=== PATIENT | female | born 1945 | race Caucasian/White ===

== ENCOUNTER 2017-12-04 03:43 | Inpatient (IN) | payer OTHER, MEDICARE ==
[~2017-12-04] VITALS: Ht 154.9 cm; Wt 94.3 kg
[~2017-12-04 03:43] MED LIST: ASPIRIN EC81 M1 PO; CALCIUM 500 +1 EAC5 PO; COZAAR100 M1 PO; CRESTOR20 M2 PO; MELOXICAM7.5 M1 PO; MYRBETRIQ50 M1 PO; TOPROL XL25 M1 PO; TYLENOL EXTRA500 M2 PO; VITAMIN C500 M7 PO
[2017-12-04] MEDS ORDERED: FLONASE ALLERG9.9 ML (10:29)
--- NOTE | 2017-12-04 11:35 | Operative Report ---
Operative/Inv Procedure Report Surgery Date: 12/04/17 Name of Procedure: Right total knee arthroplasty Pre-Operative Diagnosis: Primary osteoarthritis right knee Post-Operative Diagnosis: Same Estimated Blood Loss: less than 50ml Surgeon/Cylinder Inspector And Tester: Sandrita MUNGUIA,Gordo HOPKINS Anesthesia: block (spinal) IV Fluids: See anesthesia record Implants: [place] triathlon posterior stabilized knee size 4 femur, size 4 tibia, 16 mm polyethylene insert, size 27 patella Drains: None Specimens: Bone to pathology Tourniquet: 49 minutes Complications: None Condition: Stable Operative Indication: Patient's a 72-year-old female who has failed conservative treatment for her right knee osteoarthritis. She was indicated for right total knee arthroplasty. The risks and benefits of the procedure were discussed with the patient detail in the office she wished to proceed. A skeletal hand is necessary provided by physician talent assistant Wero Kim aid with retraction limb positioning and limb retraction component Primo throughout the case. Operative/Procedure Note Note: Once informed consent was obtained and the correct limb was identified the patient brought Room placed on table in supine position. After administration of spinal anesthesia the patient's had a Grimes catheter placed in the right thigh had a tourniquet placed. The right lower extremity is prepped and draped in usual sterile fashion. To begin the procedure a standard midline incision was made for total knee arthroscopy. Sharp dissection was carried down through the skin and subcutis tissue. A medial parapatellar arthrotomy was performed. The patella was everted and the fat pad removed from patellar tendon. The patellar thickness was measured to be 24 mm and a 10 mm resection of bone was taken off the patella. The patella was sized to size 27 patella and the Karan for the 27 patella was placed onto the patella and the drill holes were made. At this point the patella was retracted laterally and the knee was placed in the flexion. The anterior cruciate ligaments were resected. The medial and lateral menisci were resected sharply as well. A step drill was used to enter the intramedullary canal of the femur and a distal femoral cutting guide was placed. Plan resection of 6 of valgus and 10 mm of bony resection was performed without complication. The sizing guide was placed in the distal femur and the femur sized to be a size 4 femur. A size 4 4-in-1 cutting block was placed in the distal femur and the anterior, posterior, chamfer cuts were made without complication. Once this was done the box cut guide for the posterior stabilized knee was placed on the femur and the box cut was made with an oscillating saw. Bone was passed off as specimen. At this point curved osteotomes were used to remove any posterior osteophytes off the femoral condyles as well as curved curettes. Remainder of the menisci menisci were sharply resected. Attention was then turned to the tibia. Step drill was used to enter the intramedullary canal of the tibia. Intramedullary tibial cutting guide was placed and a plan resection of 9 mm off the unaffected side of the knee was set. Tibial cut was made without complication bone was passed off as specimen. The tibial sizing was used and found to be a size 4 tibial tray. Trial reduction was done with a size 4 tibial tray and a size 4 femur. Size 11 Felisa was placed. This was too loose and we actually went up to a size 16 poly-for stability. Patient had full extension and 110 of flexion. Flexion was limited by the size of the patient's thigh. The knee was stable to varus and valgus stress at 0 and 60. The patella tracked nicely and the rotation of the tibial component was marked. The components were removed and the tibial tray was pinned in place for the keel cut. The keel cut was made without complication and all components were removed. The knee was pulse lavaged and the cement was mixed on the back table. The components were then cemented in place with the tibial component cemented first followed by the femoral component and the patellar button. Excess cement was removed with curettes. A 16 mm trial insert was placed and he is placed in full extension while cement hardened. Knee was again taken through a range of motion and found to be stable. A 60 mm polyethylene insert was opened and locked onto the tibial tray without complication. The knee was again pulse lavaged and the tourniquet was released. Any bleeding was stopped with electrical cautery. The arthrotomy was then closed with #1 Vicryl interrupted sutures. The subcutaneous tissues closed with 2-0 Vicryl interrupted sutures and the skin was closed with tray. Sterile dressing was applied and the patient was awakened and taken recovery in stable condition.
[2017-12-04 14:32] VITALS: BP 128/70
[2017-12-04] MEDS ORDERED: METOPROLOL TART25 M1 PO (15:08)
--- NOTE | 2017-12-04 15:14 | PN- Student ---
Karli Blakely 12/04/17 1507: Subjective Subjective: Saw the pt post-op on the floor and she is doing well. She was eating some lunch when I arrived. She is without pain. Hasn't been oob yet or seen by PT. Grimes in place with good output. IV fluids were running. Pt has no complaints at this time. Objective Objective: Gen: O&Ax3, sitting up in bed, in no apparent distress Lung: CTA Heart: s1 and s2 normal. RRR Abdomen: soft/nt/nd LE: sensation intact bilaterally, strength 5/5 bilaterally, gross motor intact, dp 2+ bilaterally, compression bandage in place on right leg- c/d/i- ice pack in place over right knee, ALPS on Results Results: Orders Procedure Date/time Status XRY-KNEE, RIGHT 12/06 1000 Active CBC WITHOUT DIFFERENTIAL 12/05 0600 Active BASIC ELECTROLYTES PLUS BUN&CR 12/05 0600 Active Regular Diet 12/04 L Active Weight 12/04 1420 Active Vital Signs 12/04 1420 Active Teach/Educate 12/04 1420 Active Pain Treatment and Response 12/04 1420 Active Nutritional Intake, Monitor 12/04 1420 Active Isolation 12/04 1420 Active Intake & Output 12/04 1420 Active Patient Care Conference 12/04 1420 Active Activity/Ambulation 12/04 1420 Active PT Evaluate & Treat 12/04 1335 Active Saline Lock 12/04 1335 Active Pathway - chart 12/04 1335 Active Admit to inpatient 12/04 1335 Active Patient Data 12/04 1335 Active Wound Care/Dressing 12/04 1335 Active VTE Mechanical Prophylaxis 12/04 1335 Active Vital Signs 12/04 1335 Active Heat/Cold Therapy 12/04 1335 Active Grimes, Insertion/Removal/Asses 12/04 1335 Active CMS- Neurovascular Checks 12/04 1335 Active Activity/Ambulation 12/04 1335 Active CULTURE,URINE 12/04 1040 Active PATHOLOGY SPECIMEN 12/04 1040 Complete Code Status 12/04 1011 Active TRANSFER ORDERS 12/04 1004 Complete Microbiology 12/04 1015 URINE ROUT: Urine Culture - RECD Assessment/Plan Assessment: This is a 72 yo female that is POD 0 s/p right total knee arthroplasty. Plan: -She will be evaluated by PT, Wbat -IV fluids running- DC tomorrow -Reg diet, as tolerated -Grimes in place, good output, likely dc tomorrow -Pain control as ordered -ALPs and eliquis for dvt ppx -Metoprolol resumed -This evening a dose of vanco to complete periop abx -C/w home medications -AM labs Soha Granados 12/04/17 1516: Assessment/Plan Plan: agree with above PA-S note her goal is for home in a few days will d/w
[2017-12-04 16:27] VITALS: BP 132/60
[2017-12-04 18:30] VITALS: BP 140/60
[2017-12-04 20:05] VITALS: BP 120/80
[2017-12-05 00:37] VITALS: BP 120/60
[2017-12-05 04:00] VITALS: BP 120/70
--- NOTE | 2017-12-05 07:01 | PN- Student ---
Jorge Blakelyley 12/05/17 0659: Subjective Subjective: No acute overnight events. Pt did have some pain this morning but it was improving when I talked to her. Pt hasn't been oob yet, will work with PT today. No bustamante, urine output is adequate. Tolerating her reg diet, without n/v. Objective Objective: Gen: O&Ax3, sitting up in bed, in no apparent distress Lung: CTA Heart: s1 and s2 normal. RRR Abdomen: soft/nt/nd LE: sensation intact bilaterally, strength 5/5 bilaterally, gross motor intact, dp 2+ bilaterally, compression bandage in place on right leg- c/d/i- ice pack in place over right knee, ALPS on, right calf is swollen with significant tenderness to palpation Results Results: Microbiology 12/04 1015 URINE ROUT: Urine Culture - RECD Assessment/Plan Assessment: This is a 72 yo female POD 1 s/p right total knee arthroplasty, stable this morning. Plan: -She will be evaluated by PT today, Wbat -DC IV fluids today -Remove bustamante today -Possible DC to home tomorrow depending on how she progresses -POD 2 will change dressing -C/w reg diet, as tolerated -Pain control as ordered -ALPs and eliquis for dvt ppx -Metoprolol resumed -periop abx complete -C/w home medications -Pending AM labs Guillermo Chapin 12/05/17 3277: Resident Review Statement Other Findings: Patient seen and examined by myself. Complains of pain throughout the entire leg, knee calf and lower leg. No significant swelling, negative Homans test, neurovascular intact distally. Range of motion 0-30. Dressing clean dry and intact. Perioperative antibiotics. Pain medication as needed. Out of bed Physical therapy, weightbearing as tolerated DC IV fluids DC Bustamante Regular diet Follow a.m. labs Eliquis for DVT prophylaxis ALPS for DVT prophylaxis Regular home meds Dressing change postop day 2
[2017-12-05 08:38] VITALS: BP 100/60
[2017-12-05 09:30] LABS: ABSOLUTE BASOPHIL COUNT 0 /CUMM (0.0-0.2); ABSOLUTE EOSINOPHIL COUNT 0.3 /CUMM (0.0-0.7); ABSOLUTE GRANULOCYTE CT 5.9 /CUMM (1.4-6.5); ABSOLUTE LYMPH COUNT 1.3 /CUMM (1.2-3.4); ABSOLUTE MONOCYTE COUNT 0.9 /CUMM (0.10-0.60); BASOPHIL % 0.3 % (0.0-2.0); EOSINOPHIL % 3.4 % (0-5); GRANULOCYTE % 70.2 % (42.2-75.2); HEMATOCRIT 33.1 % (37-47); MEAN CORPUSCULAR HGB 32.7 PG (27.0-31.0); MEAN CORPUSCULAR HGB CONC 34.7 G/DL (33.0-37.0); MEAN PLATELET VOLUME 12.4 FL (7.4-10.4); PLATELET COUNT 126 /CUMM (130-400); RBC DISTRIBUTION WIDTH 13.7 % (11.5-14.5); RED BLOOD CELL CT 3.52 /CUMM (4.20-5.40); WHITE BLOOD CELL COUNT 8.4 /CUMM (4.8-10.8)
[2017-12-05 11:52] VITALS: BP 120/60
[2017-12-05 13:59] VITALS: BP 118/70
[2017-12-05 20:45] VITALS: BP 130/80
[2017-12-06 06:32] VITALS: BP 130/80
--- NOTE | 2017-12-06 09:06 | PN- Orthopedic ---
See Addendum Subjective Subjective: Reports pain controlled with vicodin. Reports did well doing stairs with PT this morning. Denies dizziness. No shortness of breath. No chest pains. Passing flatus, but no bm yet. Voiding well. Tolerating diet. Anticipates discharge home later today. Objective Vital Signs and I&Os Vital Signs Date Time Temp Pulse Resp B/P B/P Pulse O2 O2 Flow FiO2 Mean Ox Delivery Rate 12/06 0850 84 128/60 12/06 0850 84 128/60 12/06 0632 98.4 75 20 130/80 95 Room Air 12/05 2045 98.4 86 20 130/80 92 12/05 1359 98.0 81 20 118/70 93 Room Air 12/05 1152 97.8 69 20 120/60 94 Room Air 12/05 1028 74 106/60 12/05 1022 74 106/60 Intake & Output 12/06 1600 12/06 0800 12/06 0000 12/05 1600 12/05 0800 12/05 0000 Intake Total 001 461 6276 1080 1300 Output Total 1100 1800 Balance 480 800 -30 -720 1300 Intake, IV 350 600 600 Intake, Oral 480 800 720 480 700 Number 0 Bowel Movements Output, Urine 1100 1800 Physical Exam: General - alert & oriented x 3. comfortable. no acute distress. Lungs - clear bilaterally. no w/r/r. Cardiac - s1s2. reg. Abdomen - soft. nontender. Extremities - warm bilaterally. no c/c/e. right leg dressing removed. knee incision well approximated with tray. no erythema or exudates. bilateral calf tenderness (she reports this is baseline). nvi. Current Medications: Current Medications Sig/Rosetta Start time Last Medication Dose Route Stop Time Status Admin Acetaminophen 650 MG Q4-6 PRN PRN 12/04 1515 AC PO Apixaban 2.5 MG BID 12/05 899 AC 12/06 PO 0850 Atorvastatin Calcium 20 MG DAILY 12/05 899 AC 12/06 PO 0850 Celecoxib 400 MG DAILY 12/05 899 AC 12/06 PO 0850 Dextrose/Lactated 1,000 ML Q13H 12/04 1345 DC 12/05 Ringer's IV 0128 Docusate Sodium 100 MG BID PRN 12/04 1015 AC 12/06 PO 0850 Hydrocodone Bitart/ 1 TAB Q4-6 PRN PRN 12/04 1515 AC 12/05 Acetaminophen PO 1811 Hydrocodone Bitart/ 2 TAB Q4-6 PRN PRN 12/04 1515 AC 12/06 Acetaminophen PO 0535 Losartan Potassium 100 MG DAILY 12/05 0900 AC 12/06 PO 0850 Metoprolol Tartrate 25 MG BID 12/04 2100 AC 12/06 PO 0850 Morphine Sulfate 2 MG Q3P PRN 12/04 1345 AC 12/05 IV 0201 Ondansetron HCl 4 MG Q6P PRN 12/04 1345 AC IV Patient Medication 1 ED ONE ONE 12/05 1814 DC 12/05 Teaching ED 12/06 1815 181 Polyethylene Glycol 17 GM DAILY PRN 12/04 1015 AC PO Senna/Docusate Sodium 2 TAB AT BEDTIME NEED.. 12/04 1345 AC 12/05 PO 2147 Results Last 48 Hours of Labs: Laboratory Tests 12/05 08 Chemistry Sodium (137 - 145 mmol/L) 135 L Potassium (3.5 - 5.1 mmol/L) 4.1 Chloride (98 - 107 mmol/L) 101 Carbon Dioxide (22 - 30 mmol/L) 28 Anion Gap (5 - 16) 6 BUN (7 - 17 mg/dL) 11 Creatinine (0.5 - 1.0 mg/dL) 0.6 Estimated GFR (>60 ml/min) > 60 BUN/Creatinine Ratio (7 - 25 %) 18.3 Hematology CBC w Diff NO MAN DIFF REQ WBC (4.8 - 10.8 /CUMM) 8.4 RBC (4.20 - 5.40 /CUMM) 3.52 L Hgb (12.0 - 16.0 G/DL) 11.5 L Hct (37 - 47 %) 33.1 L MCV (81.0 - 99.0 FL) 94.0 MCH (27.0 - 31.0 PG) 32.7 H MCHC (33.0 - 37.0 G/DL) 34.7 RDW (11.5 - 14.5 %) 13.7 Plt Count (130 - 400 /CUMM) 126 L MPV (7.4 - 10.4 FL) 12.4 H Gran % (42.2 - 75.2 %) 70.2 Lymphocytes % (20.5 - 51.1 %) 15.0 L Monocytes % (1.7 - 9.3 %) 11.1 H Eosinophils % (0 - 5 %) 3.4 Basophils % (0.0 - 2.0 %) 0.3 Absolute Granulocytes (1.4 - 6.5 /CUMM) 5.9 Absolute Lymphocytes (1.2 - 3.4 /CUMM) 1.3 Absolute Monocytes (0.10 - 0.60 /CUMM) 0.9 H Absolute Eosinophils (0.0 - 0.7 /CUMM) 0.3 Absolute Basophils (0.0 - 0.2 /CUMM) 0 Assessment/Plan Assessment/Plan This 72 year old female with hx htn, hld, is POD#2 s/p right total knee arthroplasty for primary osteoarthritis right knee, with bilateral calf tenderness (which she reports is baseline for her) tolerating diet pain controlled eliquis - dvt ppx bowel regime ordered home meds ordered dressing changed will get bilateral venous doppler ultrasound to r/o dvt d/c home today if venous ultrasound negative will d/w Core Measures Venous Thromboembolism VTE Risk Factors Surgery No Mechanical VTE Prophylaxis d/t N/A MechProphylax Ordered No VTE Pharm Prophylaxis d/t NA PharmProphylax ordered
--- NOTE | 2017-12-06 09:38 | Patient Discharge Instructions ---
Discharge Instructions General Discharge Information You were seen/treated for: Primary osteoarthritis right knee You had these procedures: Right total knee arthroplasty (12/04/17) Watch for these problems: fever>101.3, increased pain, redness/swelling/drainage, dizziness, shortness of breath, chest pains Call Surgeon to remove: Arelis No bath, but you may shower: Yes Other wound care: staple removal around post-op day#14 (2 weeks) dry guaze dressing change daily, right knee keep incision clean & dry ok to shower, but no pools / bathing Diet Continue normal diet: Yes Recommended Diet: Regular Activity Full Activity/No Limits: Yes Activity Self Limited: Yes Activity Limited to: Weight bear as tolerated Other activity limits: ambulate with rolling walker assistance continue PT Acute Coronary Syndrome Inclusion Criteria At DC or during hospital stay patient has or had the following: ACS DIAGNOSIS No Discharge Core Measures Meds if any: Prescribed or Continued at Discharge Meds if any: NOT Prescribed or Continued at Discharge Congestive Heart Failure Inclusion Criteria At DC or during hospital stay patient has or had the following: CHF DIAGNOSIS No Discharge Core Measures Meds if any: Prescribed or Continued at Discharge Meds if any: NOT Prescribed or Continued at Discharge Cerebrovascular accident Inclusion Criteria At DC or during hospital stay patient has or had the following: CVA/TIA Diagnosis No Discharge Core Measures Meds if any: Prescribed or Continued at Discharge Meds if any: NOT Prescribed or Continued at Discharge Venous thromboembolism Inclusion Criteria VTE Diagnosis No VTE Type NONE VTE Confirmed by (Test) NONE Discharge Core Measures - Per Current guidelines, there needs to be overlap - treatment for the first 5 days of Warfarin therapy. - If discharged on Warfarin prior to 5 days of - overlap therapy, the patient will need to be - assessed for post discharge needs including - *Post discharge parental anticoagulation - *Warfarin and/or parental anticoagulation education - *Follow up date to check INR post discharge At least 5 days overlap therapy as Inpatient No Meds if any: Prescribed or Continued at Discharge Note: Overlap Therapy is Warfarin and Anticoagulant Meds if any: NOT Prescribed or Continued at Discharge
[2017-12-06] MEDS ORDERED: DOCUSATE SODIU100 M3 PO (09:43)
[2017-12-06] MEDS ORDERED: VICODIN 5-3001 EACH PO (09:43)
[2017-12-06] MEDS ORDERED: MIRALAX119 GM PO (09:43)
[2017-12-06] MEDS ORDERED: ELIQUIS2.5 M1 PO (09:43)
--- NOTE | 2017-12-06 09:45 | Surgical Discharge Summary ---
Visit Information Visit Dates Admission Date: 12/04/17 Discharge Date: 12/06/17 History of Present Illness Chief Complaint: Primary osteoarthritis right knee Medical History Blood Transfusion Hx: No Neurological: NONE EENT: NONE Cardiovascular: hypertension, hyperlipidemia Respiratory: NONE Gastrointestinal: NONE Hepatic: NONE Renal: NONE Musculoskeletal: osteoarthritis Psychiatric: NONE Endocrine: NONE Blood Disorders: NONE Cancer(s): NONE YARD ENGINEER/Reproductive: NONE History of MRSA: No History of VRE: No History of CDIFF: No Isolation History: Standard Surgical History Pertinent Surgical History: knee replacement Psychosocial History Where Do You Live? Home Who Do You Live With? Family Services at Home: None What is Your Primary Language? British Review of Systems: see h&p Hospital Course Course Attending Physician: Gordo Remy MD Primary Care Physician: Jimi Todd MD Hospital Course: Electively scheduled right total knee arthroplasty on 12/04/17 by for primary osteoarthritis right knee. Started on eliquis 2.5mg twice daily post-op for dvt prophylaxis. Seen and evaluated by PT starting on the day of her surgery , and continued daily post-operatively. Daily dressing changed initiated on post -op day#2, at which time bilateral calf tenderness was appreciated, which the patient reports is her baseline. Venous doppler ultrasound study done on post-op day#2 to rule out dvt bilaterally was ordered, however, patient refused study while in ultrasound department. She has been given instructions to report to ER post discharge if any signs of dvt vs pe should arise, eg calf pain, swelling, redness,warmth as well as difficulty breathing, rapid heart rate, chest pain and shortness of breath. Otherwise cleared by PT for discharge to home. Stable for d /c home with home health services, with staple removal planned in 2 weeks. Complications: None Allergies: Coded Allergies: No Known Allergies (11/28/17) Significant Procedures: Surgery Date: 12/04/17 Name of Procedure: Right total knee arthroplasty Disposition Summary Disposition Principal Diagnosis: Primary osteoarthritis right knee Additional Diagnosis: same, s/p Surgery Date: 12/04/17 Name of Procedure: Right total knee arthroplasty Discharge Disposition: home health services Discharge Instructions General Discharge Information Code Status: Full Code Patient's Diet: regular diet, as tolerated Patient's Activity: weight bearing as tolerated. rolling walker assistance as needed. continue PT. Follow-Up Instructions/Appts: staple removal around post-op day#14 6 week follow up with Medications at Discharge Discharge Medications: Stop taking the following medications: Aspirin (Ecotrin*) 81 MG TABLET.DR ORAL DAILY Meloxicam (Meloxicam) 7.5 MG TABLET ORAL DAILY Acetaminophen (Tylenol Extra Strength) 500 MG TABLET ORAL EVERY SIX HOURS Continue taking these medications: Losartan (Cozaar) 100 MG TABLET 1 Tablet ORAL DAILY Calcium Carbonate/Vitamin D3 (Calcium 500 + D Tablet) 500 MG-400 TABLET 1 Tablet ORAL TWICE DAILY Ascorbic Acid (Vitamin C) 500 MG CAPSULE.ER 1 Capsule ORAL DAILY Mirabegron (Myrbetriq) 50 MG TAB.ER.24H 1 Tablet ORAL DAILY Rosuvastatin Calcium (Crestor) 20 MG TABLET 1 Tablet ORAL DAILY Fluticasone Propionate (Flonase Allergy Relief) 50 MCG/ACTUATION SPRAY.SUSP as needed for CONGESTION Metoprolol Tartrate (Metoprolol Tartrate) 25 MG TABLET 1 Tablet ORAL TWICE DAILY Qty = 60 Start taking the following new medications: Apixaban (Eliquis) 2.5 MG TABLET 2.5 Milligram ORAL TWICE DAILY Qty = 60 No Refills Docusate Sodium (Docusate Sodium) 100 MG CAPSULE 100 Milligram ORAL TWICE DAILY as needed for CONSTIPATION Qty = 60 No Refills Polyethylene Glycol 3350 (Miralax) 17 GRAM/DOSE POWDER 17 Gram ORAL DAILY as needed for CONSTIPATION Qty = 2 No Refills Hydrocodone/Acetaminophen (Vicodin 5-300 MG Tablet) 5 MG-300 MG TABLET 1-2 Tablet ORAL EVERY 4-6 HOURS as needed for pain control Qty = 36 No Refills Instructions: tylenol alternatively. do not combine. Copies To: Perez MUNGUIA,Jimi Motley
--- NOTE | 2017-12-06 12:32 | RADIOLOGY REPORT ---
EXAMINATION: XR KNEE, RIGHT CLINICAL INFORMATION: Status post right total knee arthroplasty. COMPARISON: None. TECHNIQUE: AP and cross table views of the right knee were obtained.. FINDINGS: The study demonstrates sequelae of a total knee arthroplasty. The hardware appears in anatomic position and intact. No fractures are demonstrated. There are postoperative changes in the soft tissues, and there are multiple skin tray along the anterior knee. IMPRESSION: 1. The study demonstrates sequelae of a right total knee arthroplasty.
--- NOTE | 2017-12-06 13:51 | Event Note ---
Event Note Event Note: Received a phone call from radiology, patient refused ultrasound. Dr. Remy has been made aware of this and has spoken with patient. She has been given instructions to return to ER if any signs of worsening clinical state, ie worsening lower extremity calf pain or any chest pain, shortness of breath, rapid heart beat.
[2017-12-06 14:47] VITALS: BP 118/74
== END 2017-12-06 15:58 | disposition home health service (06) | DRG 470 ==
LOC: 2NA 03:43 → SDA 03:43 → ENRESERV 12:01 → ENTRNSPT 12:53 → EDTRNSPT 13:07 → EDTRNSPTSTS 13:07 → 2NA 13:27 → CMPTRNSPT 13:28 → ENPENDDIS 12-06 13:51 → ENTRNSPT 12-06 15:14 → EDTRNSPT 12-06 15:35 → EDTRNSPTSTS 12-06 15:35 → CMPTRNSPT 12-06 15:48 → 2NA 12-06 15:58
PROVIDERS: Physician Assistant Surgical
PROC: 3E0T3BZ Introduction of Anesthetic Agent into Peripheral Nerves and Plexi, Percutaneous Approach (ICD-10-PCS; principal; 2017-12-06)
PROC: 0SRC0J9 Replacement of Right Knee Joint with Synthetic Substitute, Cemented, Open Approach (ICD-10-PCS; principal; 2017-12-06)
DX: M17.11 Unilateral primary osteoarthritis, right knee (principal); E66.9 Obesity, unspecified; Z68.39 Body mass index [BMI] 39.0-39.9, adult; I10 Essential (primary) hypertension; K21.9 Gastro-esophageal reflux disease without esophagitis; E78.00 Pure hypercholesterolemia, unspecified; I34.0 Nonrheumatic mitral (valve) insufficiency; I44.7 Left bundle-branch block, unspecified; Z91.19 Patient's noncompliance with other medical treatment and regimen
CPT/HCPCS: 2NASP; 36415; 36592; 73560-RT; 82436; 87086; 87147; 88305; 97110-GO; 97116-GO; 97161-GP; 97530-GO; C1713; J1100; J1200; J3370; J3490; J7040